=== PATIENT | female | born 1930 | race Caucasian/White ===

== ENCOUNTER 2016-05-08 15:40 | Emergency (ER) | payer OTHER, BC ==
[~2016-05-08] VITALS: Ht 167.6 cm; Wt 59.0 kg
--- NOTE | ~2016-05-08 | EKG ---
[address] [address] ELECTROCARDIOGRAM REPORT Name: KAMILLEDEVAUGHN C [facility] [id number] Admission: 05/08/16 Attend Phys: Discharge: 05/08/16 Date of : 30 Report #: [id number] THIS REPORT FOR: //name// [facility] ED Test Date: 2016-05-08 Test Time: 18:47:00 Pat Name: DEVAUGHN SIMENTAL Department: Room: Gender: F Talent Acquisition Consultant: Ronen HERNANDEZ : 1930 Requested By: Jaye Garcia Order Number: [id number] MD: Reza Toth Measurements Intervals [place] Rate: 66 P: 106 WA: 182 QRS: -65 QRSD: 95 T: 61 QT: 420 QTc: 441 Interpretive Statements Sinus rhythm Atrial premature complexes Inferior infarct, old No previous ECG available for comparison Electronically Signed On 05-09-2016 8:05:34 AMMONIA DISTILLER by Reza Toth [email or web address] <ELECTRONICALLY SIGNED> By: Reza Toth MD 05/09/16 0805 1847 1847 MD UMESH Louie
--- NOTE | ~2016-05-08 | EKG ---
[place] [address] [facility] [place] [address] ELECTROCARDIOGRAM REPORT Name: DEVAUGHN SIMENTAL [facility]: [facility] [id number] Admission: 05/08/16 Attend Phys: Discharge: 05/08/16 Date of : 30 Report #: [id number] THIS REPORT FOR: //name// [facility] ED Test Date: 2016-05-08 Test Time: 15:45:06 Pat Name: DEVAUGHN SIMENTAL Department: Room: Gender: F Elevator Worker: : 1930 Requested By: Jaye Garcia Order Number: [id number] MD: Reza Toth Measurements Intervals [place] Rate: 82 P: -14 CA: 193 QRS: -63 QRSD: 83 T: 59 QT: 453 QTc: 529 Interpretive Statements Sinus rhythm Atrial premature complexes RSR' in V1 or V2, right VCD or RVH Inferior infarct, old Consider anterior infarct Baseline wander in lead(s) V1 No previous ECG available for comparison Electronically Signed On 05-09-2016 8:03:14 SANDSTONE SPLITTER by Reza Toth [email or web address] <ELECTRONICALLY SIGNED> By: Reza Toth MD 05/09/16 0803 1545 1545 Reza Toth MD /EPI
[~2016-05-08 15:40] MED LIST: ALEVE220 MG PO; ALIGN4 MG PO; ASPIRIN EC81 M1 PO; ATIVAN0.5 MG PO; B COMPLEX WITH1 EACH; BIOTIN2500 MCG PO; CALCIUM500 MG PO; CAPSULE #0001 EACH; CELEXA 20 MG TA20 MG; COSAMIN DS CAP1 EAC1; CYMBALTA30 MG PO; CYMBALTA60 MG PO; DEXILANT60 MG; FENTANYL PA50 MCG/HR TP; GABAPENTIN 100100 MG PO; GABAPENTIN100 MG PO; GARLIQUE5000 MCG PO; GENTEAL; GLUCOSAMINE &1 EAC1 PO; MAG-TAB SR84 MG PO; MAGNESIUM; MEDROL DOSPAK21 TAB PO; MIRALAX255 GM; MULTIVITAMINS1 EAC7 PO; NAPROSYN250 MG PO; NORCO 5-325 TA1 EACH PO; OMEGA-31000 M1 PO; PERCOCET 5-3251 EACH PO; PERCOCET PO; PRILOSEC 20 MG20 MG PO; RESTASIS1 EACH OP; RESTASIS1 EACH OPHTHALMIC; SYSTANE; VENLAFAXINE H37.5 MG PO; VITAMIN D1000 UNI1 PO; VITAMINC500 PO; XANAX 0.25 MG0.25 MG PO; ZINC50 M1 PO; [UNRECOGNIZED DRUG - OTHER]; [UNRECOGNIZED DRUG - OTHER]
[2016-05-08 16:29] LABS: ABSOLUTE NEUTROPHILS 2.6 thou/uL (1.4-8.2); BASOPHILS 1.8 % (0.0-2.0); EOSINOPHILS 2.8 % (0.0-3.0); HEMATOCRIT 38.2 % (37.0-47.0); HEMOGLOBIN 12.9 gm/dL (12.0-15.0); LYMPHOCYTES 30.8 % (24.0-44.0); MCH 31.8 pg (26.0-34.0); MCHC 33.8 % (28.0-37.0); MCV 94.2 fL (80.0-100.0); PLATELET COUNT 209 thou/uL (150-400); POLYS 54.6 % (36.0-66.0); RBC 4.06 mil/uL (4.20-5.00); RDW 13.8 % (10.5-14.5); WBC 4.7 thou/uL (4.0-11.0)
[2016-05-08 16:35] LABS: MANUAL DIFF NO
[2016-05-08 16:40] LABS: ANION GAP 6 mmol/L (7-16); BUN 29 mg/dL (7-18); CALCIUM 9.7 mg/dL (8.5-10.1); CHLORIDE 97 mmol/L (98-107); CO2 34 mmol/L (21-32); CREATININE 1.1 mg/dL (0.6-1.3); GLUCOSE 94 mg/dL (70-99); POTASSIUM 4.1 mmol/L (3.5-5.1); SODIUM 137 mmol/L (136-145)
[2016-05-08 16:53] LABS: ALBUMIN 3.7 g/dL (3.4-5.0); ALKALINE PHOSPHATASE 72 U/L (46-116); NT-PRO BRAIN NAT PEPTIDE 290 pg/mL (<300); SGOT 29 U/L (15-37); SGPT 29 U/L (30-65); TOTAL BILIRUBIN 0.3 mg/dL (<0.1-1.0); TOTAL PROTEIN 7.8 g/dL (6.4-8.2); TROPONIN-I < 0.04 ng/mL (<0.04-0.07)
[2016-05-08] MEDS ORDERED: MOBIC7.5 MG PO (19:40)
== END 2016-05-08 20:20 | disposition home or self-care (01) ==
LOC: ER 15:40
PROVIDERS: Nurse Practitioner Family
DX: R07.89 Other chest pain (principal); F41.9 Anxiety disorder, unspecified; Z98.890 Other specified postprocedural states; Z88.5 Allergy status to narcotic agent; Z88.2 Allergy status to sulfonamides; Z91.040 Latex allergy status

== ENCOUNTER → 2017-08-26 | Outpatient (CLI) | payer OTHER, BC ==
[~2017-08-26] MED LIST changes: +MOBIC7.5 MG PO
== END ==
LOC: MRI 07:04
DX: S83.222A Peripheral tear of medial meniscus, current injury, left knee, initial encounter (principal); M17.12 Unilateral primary osteoarthritis, left knee; M25.462 Effusion, left knee; X58.XXXA Exposure to other specified factors, initial encounter; Y93.89 Activity, other specified; Y92.89 Other specified places as the place of occurrence of the external cause; Y99.8 Other external cause status

== ENCOUNTER → 2017-09-16 | Outpatient (CLI) | payer OTHER, BC | LOC: NUC 10:50 | DX: M85.88 Other specified disorders of bone density and structure, other site (principal); M81.0 Age-related osteoporosis without current pathological fracture; Z78.0 Asymptomatic menopausal state ==

== ENCOUNTER 2017-11-10 05:24 | Inpatient (IN) | payer OTHER, BC ==
[2017-10-25 14:00] LABS: HEMATOCRIT 39.8 % (37.0-47.0); HEMOGLOBIN 13.6 gm/dL (12.0-15.0); MCH 32.7 pg (26.0-34.0); MCHC 34.2 g/dL (28.0-37.0); MCV 95.9 fL (80.0-100.0); RBC 4.16 mil/uL (4.20-5.00); RDW 13.4 % (10.5-14.5); URINE BILIRUBIN NEGATIVE (Negative); URINE BLOOD NEGATIVE (Negative); URINE CLARITY CLEAR; URINE COLOR YELLOW; URINE GLUCOSE-RANDOM* NEGATIVE (Negative); URINE KETONES TRACE (Negative); URINE LEUKOCYTES-REFLEX NEGATIVE (Negative); URINE NITRITE-REFLEX NEGATIVE (Negative); URINE PROTEIN (DIPSTICK) NEGATIVE (Negative); URINE UROBILINOGEN 0.2 E.U./dl (0.2-1.0); WBC 3.9 thou/uL (4.0-11.0)
[2017-10-25 14:11] LABS: PROTIME 10.7 Seconds (9.3-11.4)
[2017-10-25 15:55] LABS: ALBUMIN 3.5 g/dL (3.4-5.0); CALCIUM 9.7 mg/dL (8.5-10.1); CREATININE 1.4 mg/dL (0.6-1.0); POTASSIUM 4.6 mmol/L (3.5-5.1); TOTAL BILIRUBIN 0.4 mg/dL (<0.1-1.0); TOTAL PROTEIN 7.1 g/dL (6.4-8.2)
[~2017-11-10] VITALS: Ht 167.6 cm; Wt 53.6 kg
[2017-11-10] VITALS (10 sets, daily range): BP systolic 95–137; BP diastolic 42–78
--- NOTE | ~2017-11-10 | O ---
[facility] [address] [place] [address] OPERATIVE REPORT Name: DEVAUGHN SIMENTAL Room #: 455-P ADM IN M.R.#: [id number] Admission: 11/10/17 Attend Phys: Bib Johnston MD Discharge: Date of : 30 Report #: [id number] THIS REPORT FOR: //name// CC: Gerald Johnston DATE OF SERVICE: 11/10/2017 PREOPERATIVE DIAGNOSIS: Left knee valgus osteoarthritis. DICTATION ENDS HERE. By: 1613 1752 Bib Johnston MD /nt
--- NOTE | ~2017-11-10 | O ---
[facility] [address] OPERATIVE REPORT Name: DEVAUGHN SIMENTAL Room #: 455-P [facility] IN M.R.#: [id number] Admission: 11/10/17 Attend Phys: Bib Johnston MD Discharge: Date of : 30 Report #: [id number] THIS REPORT FOR: //name// CC: Gerald Johnston DATE OF SERVICE: 11/10/2017 PREOPERATIVE DIAGNOSIS: Left knee valgus osteoarthritis. POSTOPERATIVE DIAGNOSIS: Left knee valgus osteoarthritis. PROCEDURE: Left total knee arthroplasty using Navio assist. SURGEON: Bib Johnston MD CLIENT BUSINESS MANAGER: Zoila June PA-C. INDICATIONS FOR ASSISTANCE: Throughout the case, extensive retraction and manipulation of the knee was required. This was afforded to me by my periodontal assistant. ANESTHESIA: LMA with an adductor canal block. IMPLANTS: Lopez and Nephew size 6 Legion cobalt chrome posterior stabilized femur, a size 4 tibia, a size 9 highly constrained polyethylene and a size 32 patella. TOURNIQUET TIME: 73 minutes. ESTIMATED BLOOD LOSS: 25 mL. COMPLICATIONS: None. SPECIMENS: None. CONDITION UPON LEAVING THE OPERATING ROOM: Stable. INDICATION FOR PROCEDURE: The patient is an 87-year-old female with severe left knee valgus osteoarthritis. She had failed conservative treatment for this and after discussion with her, she elected for left total knee arthroplasty. DESCRIPTION OF PROCEDURE: Risks, benefits, alternatives, complications were discussed in detail with the patient including but not limited to risk of anesthesia, risk of damage to nerves, arteries and blood vessels, risk for infection and bleeding, risk for continued knee pain and need for reoperation. Informed consent was obtained from the patient. The left knee was appropriately [address] [address] OPERATIVE REPORT Name: DEVAUGHN SIMENTAL Rei Room #: 455-P ADM IN M.R.#: [id number] Admission: 11/10/17 Attend Phys: Bib Johnston MD Discharge: Date of : 30 Report #: [id number] marked in the preoperative holding area. IV Ancef was given for preoperative antibiotics. She was brought to the operating room and placed in the supine position on the operating room table. LMA anesthesia was induced without complication. Tourniquet was placed on the left thigh. Left lower extremity was prepped and draped in normal sterile fashion. Timeout was performed properly identifying the patient and procedure as well as the instrumentation and implants. All in the operating room were in agreement. Left lower extremity was exsanguinated, tourniquet was inflated. Tourniquet time was 73 minutes. Standard midline approach to the knee was made with a 10 blade through the skin. Dissection was taken down sharply to the fascia and deep flaps were developed medially and laterally. A fresh 10 blade was used to make a medial parapatellar arthrotomy and the knee was inspected. There was a severe valgus knee osteoarthritis with complete loss of articular cartilage on the lateral femoral condyle as well as the lateral tibial plateau. ACL and PCL were removed sharply. Anterior horns of the meniscus were removed sharply. Reference pins were then placed in the femur and tibia for the Navio robotic system. The knee was then mapped digitally using the Navio system and an intraoperative plan was made. We sized a size 6 femur and a size 4 tibia and the Navio bur was then used to make the distal femoral cut. The size 6, 4-in-1 cutting block was placed. Anterior, posterior and chamfer cuts were made. The tibial resection was then made using the tibial resection guide using the Navio robot for placement. A saw was used for the tibial cut. After this, flexion and extension gaps were checked and found to have good balance in flexion; however, in extension, she was tight laterally, which was expected given her preoperative deformity. Lamina minister of religion was then used and a lateral release was performed using the pie-crust technique. This balanced the lateral side well. She, however, had what appeared to be an insufficient MCL and was felt that we could make up for this with a highly constrained liner. Tibia was sized, found to be a size 4. A size 4 tibial trial was placed, a size 6 femoral trial was placed and the box cut was made. This was then trialed with a size 9 highly constrained polyethylene. Knee was taken through range of motion and found to be stable. This was mapped digitally using the Navio system and this confirmed good balance in flexion and extension both medially and laterally. A 9 mm was taken off the posterior surface of the patella and a size 32 patellar trial was placed. Knee was taken through range of motion, found to be stable, and found to have good balance in flexion and extension both medially and laterally. Trial components were removed. Bony ends were thoroughly irrigated with normal saline. A final size 4 tibia, a size 6 Legion narrow cobalt chrome femur and a size 32 patella were cemented in place using standard cementation techniques. While the cement cured, a periarticular injection consisting of morphine, ropivacaine, epinephrine placed around the knee joint. The tourniquet was deflated. Hemostasis was obtained with Bovie cautery. Final size 9 highly constrained polyethylene was placed. A gram of vancomycin was placed deep in the joint. The fascia was closed with 0 Vicryl, skin was closed with 2-0 Vicryl, 3-0 Monocryl. Dermabond and a SHAUN dressing was applied. The patient [facility] [address] [place] [address] OPERATIVE REPORT Name: DEVAUGHN SIMENTAL Room #: 455-P ADM IN M.R.#: [id number] Admission: 11/10/17 Attend Phys: Bib Johnston MD Discharge: Date of : 30 Report #: [id number] tolerated this procedure well and went to the recovery room under care of anesthesia postoperatively. <ELECTRONICALLY SIGNED> By: Bib Johnston MD 11/11/17 0733 1623 1810 Bib Johnston MD /nt
[~2017-11-10 05:24] MED LIST changes: +CALCIUM 600 +1 EAC1 PO; +CO Q-10150 MG PO; +COLLAGEN PO; +GARLIC1 EACH PO; -GARLIQUE5000 MCG PO; +VITAMIN D32000 UNI1 PO
[2017-11-11] VITALS: BP 95/51
[2017-11-11 04:00] VITALS: BP 95/51
[2017-11-11 04:15] LABS: HEMATOCRIT 38.3 % (37.0-47.0); HEMOGLOBIN 13.2 gm/dL (12.0-15.0); MCHC 34.3 g/dL (28.0-37.0); MCV 96.2 fL (80.0-100.0); RBC 3.99 mil/uL (4.20-5.00); WBC 8.7 thou/uL (4.0-11.0)
[2017-11-11 05:54] VITALS: BP 95/51
[2017-11-11 08:00] VITALS: BP 94/40
[2017-11-11 15:59] VITALS: BP 91/41
[2017-11-11 19:36] VITALS: BP 106/50
[2017-11-12 00:15] VITALS: BP 99/44
[2017-11-12 04:23] VITALS: BP 121/56
[2017-11-12 06:01] LABS: HEMATOCRIT 33.4 % (37.0-47.0); HEMOGLOBIN 11.5 gm/dL (12.0-15.0); MCH 32.8 pg (26.0-34.0); MCHC 34.5 g/dL (28.0-37.0); MCV 95.2 fL (80.0-100.0); RBC 3.51 mil/uL (4.20-5.00); RDW 13.2 % (10.5-14.5); WBC 5.6 thou/uL (4.0-11.0)
[2017-11-12 08:22] VITALS: BP 95/54
[2017-11-12 14:56] VITALS: BP 95/54
[2017-11-12 20:53] VITALS: BP 125/57
[2017-11-13 06:41] LABS: HEMATOCRIT 33.3 % (37.0-47.0); HEMOGLOBIN 11.8 gm/dL (12.0-15.0); MCH 33.9 pg (26.0-34.0); MCHC 35.3 g/dL (28.0-37.0); RBC 3.47 mil/uL (4.20-5.00); RDW 13.5 % (10.5-14.5); WBC 4.9 thou/uL (4.0-11.0)
[2017-11-13 07:28] VITALS: BP 137/76
[2017-11-13 14:07] VITALS: BP 95/54
== END 2017-11-13 15:09 | disposition home health service (06) | DRG 470 ==
LOC: TBA 05:24 → 4W 05:24 → PRE 05:41 → 4W 16:09 → ENTRNSPT 11-12 17:03 → SICU 11-12 18:05
PROVIDERS: Orthopaedic Surgery
PROC: 0SRD0J9 Replacement of Left Knee Joint with Synthetic Substitute, Cemented, Open Approach (ICD-10-PCS; principal; 2017-11-10)
DX: M17.12 Unilateral primary osteoarthritis, left knee (principal); Z79.899 Other long term (current) drug therapy; Z88.2 Allergy status to sulfonamides; Z88.6 Allergy status to analgesic agent; Z91.040 Latex allergy status
CPT/HCPCS: 10047; 15002; 50010; 50101; 50415; 50954; 51130; 51225; 51771; 53000; 53078; 53364; 54118; 56527; 56528; 57095; 57103; 57109; 57110; 57113; 57127; 62110; 62900; 65060; 70005

== ENCOUNTER → 2019-01-26 | Outpatient (CLI) | payer OTHER, BC ==
[~2019-01-26] VITALS: Ht 165.1 cm; Wt 56.7 kg
[~2019-01-26] MED LIST changes: +ASPIR 8181 MG PO; +AZELASTINE205.5 MCG/ NARES; +COLLAGEN PLUS1 EACH PO; +GLUCOSAMINE CH1 EA10 PO; +HYDROCODON-ACE1 EAC7 PO; +MAG-G27 MG PO; +MELOXICAM7.5 MG PO; +VITAMIN B COMP1 EACH PO
--- NOTE | ~2019-01-26 | HPC ---
[facility] [address] [address] PAIN MANAGEMENT CONSULTATION Name: KAMILLEDEVAUGHN C Room #: [facility] Hester#: [id number] Admission: 01/26/19 Attend Phys: Twin Stoll MD Discharge: Date of : 30 Report #: [id number] THIS REPORT FOR: //name// CC: Gerlad Stoll DATE OF SERVICE: 01/26/2019 CHIEF COMPLAINT: Low back pain with severe scoliosis post laminectomy syndrome. HISTORY OF PRESENT ILLNESS: The patient is a delightful 88-year-old longtime friend. I cared for her , Luis, who in April. Over the course of the last several months, she has been experiencing pain in the middle of her back. She scores her pain as a 5-6. She had left knee surgery and was undergoing physical therapy. As part of her therapy, she was placed in the swimming pool and was using a noodle underneath her arms and she was trying to kick. She felt a sudden pain that has been persistent over the course of the last several months, described as ache. She has been reluctant to take medications because of history of constipation. She has used Voltaren gel with some benefit. She has not had her own prescription and using some of her 's who with a history of arthritis. CURRENT MEDICATIONS: Magnesium, vitamin, aspirin, Astelin, ascorbic acid, zinc, CoQ10, vitamin D3, venlafaxine, biotin, garlic, multivitamins. ALLERGIES: SULFA, CODEINE, LATEX. PAST MEDICAL HISTORY: Remarkable for lumbar surgery by Dr. Whittington for radiculopathy. She was hospitalized in 2013 for abdominal pain and developed an ileus, possibly associated with use of pain medication. Dr. Johnston performed knee replacement on the left and she has been doing physical therapy of every kind she says for the last year and a half. REVIEW OF SYSTEMS: Positive for occasional constipation. She describes fatigue, weakness, weight loss. She is somewhat unsteady on her feet and has nocturia. SOCIAL HISTORY: She is a , living in her own home. She has a very supportive family and her ____ is also a friend of mine and present today. She has good support. Daily caregivers come in for several hours. She denies use of tobacco and alcohol. She is an author. PHYSICAL EXAMINATION: GENERAL: Pleasant, alert and oriented, very sharp. VITAL SIGNS: Blood pressure 131/59, heart rate 72, respirations 14. She is 5 feet 5 inches, 125 pounds, BMI of 20.8[place] [address] PAIN MANAGEMENT CONSULTATION Name: DEVAUGHN SIMENTAL [facility] [id number] Admission: 01/26/19 Attend Phys: Twin Stoll MD Discharge: Date of : 30 Report #: [id number] HEENT: Pupils are equal, round, reactive to light. EOMs are intact. Mucous membranes are moist. NECK: Supple. CHEST: Clear. There is slight cardiac murmur. She moves from sitting to standing position and ambulates with a walker. She is a bit unsteady on her feet, but has not fallen, although she would appear to be a fall risk. ABDOMEN: Soft. MUSCULOSKELETAL: Spine reveals small scar overlying the lower lumbar spine from previous surgery. She has a rotational scoliosis and kyphosis. Tenderness across the lumbosacral segment. Straight leg raising is negative. Sensation is normal in lower extremities. She has generalized weakness of the lower extremities. Old x-rays are available, which show even several years ago that she had advanced lumbar spine degenerative changes throughout. Spinal stenosis was noted, particularly at L2-L3 and L4-L5 with bilateral neural foraminal stenosis as well. IMPRESSION: 1. 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 2. Severe spinal stenosis. RECOMMENDATIONS: Epidural steroid injection under fluoroscopic guidance. Potential benefits and epidural were reviewed. She is very reluctant to use medication. I have nonetheless provided her with a very small prescription of 10 tablets of hydrocodone 5/325. She can take one half tablet as a trial to see about its effects. She understands that constipation is common and she will use a stool softener and laxative early on if necessary. She should take it with great care in case she is dizzy to avoid fall risk. PROCEDURE: Epidural steroid injection under fluoroscopic guidance. DESCRIPTION OF PROCEDURE: After informed consent, she was taken to fluoroscopic suite, placed prone, skin prepped with ChloraPrep. Skin was anesthetized over the L2-L3 interspace. A 20-gauge Tuohy epidural needle was then advanced on the first attempt easily into the epidural space using loss of resistance technique. There was no blood or CSF aspirated. A 0.25 mL of Isovue was injected. Good spread of dye was seen throughout the epidural space. It was then followed by 3 mL of 0.5% lidocaine mixed with 80 mg triamcinolone. She tolerated the procedure well. There were no complications. She was taken to recovery room [address] [address] PAIN MANAGEMENT CONSULTATION Name: DEVAUGHN SIMENTAL Room #: [facility] Hester#: [id number] Admission: 01/26/19 Attend Phys: Twin Stoll MD Discharge: Date of : 30 Report #: [id number] for observation and discharged. Followup visit is scheduled in pain clinic on an as needed basis in the next 1-2 months. By: 1546 0622 Twin Stoll MD /nt
[2019-01-26 14:49] VITALS: BP 131/59
--- NOTE | 2019-01-26 15:13 | NUR ---
Pain Clinic Assessment: 1. History of Osteoarthritis: back History of Rheumatoid Arthritis: 2. Height: 5 ft. 5 in. 165.1 cm. Weight: 125.0 lb. oz. 56.700 kg. Patient's BMI: 20.8 3. Vital Signs: BP: 131/59 Pulse: 72 Resp: 14 Temp: 02 Sat: 98 ECG Mon: 4. Pain Intensity: 5-6 5. Fall Risk: Dizziness: N Needs help standing or walking: Y Fallen in the last 3 months: N Fall risk comments: 6. Patient on Blood Thinner: None 7. History of Hypertension: N 8. Opioid Therapy greater than 6 weeks: N Opiate Contract Signed: 9. Risk Assessment Tool Provided: 10. Functional Assessment Tool: 11. Recreational Drug Use: Unknown Drug Type: Tobacco Use: Never Smoker Tobacco Type: Amount or Packs/day: How Many Years: Alcohol Use: No Frequency: Quant:
== END | disposition home or self-care (01) ==
LOC: PAIN 06:58
DX: M54.5 Low back pain (principal); M51.16 Intervertebral disc disorders with radiculopathy, lumbar region; M47.26 Other spondylosis with radiculopathy, lumbar region; M48.061 Spinal stenosis, lumbar region without neurogenic claudication; M41.80 Other forms of scoliosis, site unspecified; F41.9 Anxiety disorder, unspecified; Z98.890 Other specified postprocedural states; Z79.82 Long term (current) use of aspirin; Z79.899 Other long term (current) drug therapy; Z91.040 Latex allergy status; Z88.2 Allergy status to sulfonamides; Z88.6 Allergy status to analgesic agent; Z96.652 Presence of left artificial knee joint

== ENCOUNTER → 2019-05-18 | Outpatient (CLI) | payer OTHER, BC | LOC: SJCVCIMAG 14:24 | DX: M79.605 Pain in left leg (principal); R22.42 Localized swelling, mass and lump, left lower limb ==

== ENCOUNTER → 2019-05-30 | Outpatient (CLI) | payer OTHER, BC | LOC: SJCVC 13:04 | DX: M79.89 Other specified soft tissue disorders (principal); I25.10 Atherosclerotic heart disease of native coronary artery without angina pectoris; E78.5 Hyperlipidemia, unspecified; I73.9 Peripheral vascular disease, unspecified; Z96.652 Presence of left artificial knee joint; Z90.49 Acquired absence of other specified parts of digestive tract ==

== ENCOUNTER → 2019-09-05 | Outpatient (CLI) | payer OTHER, BC | LOC: SJCVC 13:54 | DX: R00.0 Tachycardia, unspecified (principal); R94.31 Abnormal electrocardiogram [ECG] [EKG]; I10 Essential (primary) hypertension; I34.1 Nonrheumatic mitral (valve) prolapse; E78.5 Hyperlipidemia, unspecified; I87.2 Venous insufficiency (chronic) (peripheral); Z79.899 Other long term (current) drug therapy ==